=== PATIENT | male | born 1960 | race Caucasian/White ===

== ENCOUNTER 2023-02-07 23:17 | Emergency (ER) | payer OTHER ==
[~2023-02-07] VITALS: Ht 182.9 cm; Wt 118.0 kg
[2023-02-07 23:50] VITALS: BP 168/90
== END 2023-02-07 23:50 | disposition home or self-care (01) ==
LOC: ED 23:17
DX: Z77.21 Contact with and (suspected) exposure to potentially hazardous body fluids (principal); Z88.1 Allergy status to other antibiotic agents
CPT/HCPCS: 36415; 80074; 80076; 99283